=== PATIENT | male | born 1995 | race Two or more races ===

== ENCOUNTER 2021-01-03 16:43 | Emergency (ER) | payer OTHER ==
[2021-01-03] MEDS ORDERED: Diphtheria,Pertussis(Acell),Tetanus Vaccine 0.5 ML Syringe IM ONE (17:23)
--- NOTE | 2021-01-03 17:42 | EDM.PDOC ---
ED HPI GENERAL MEDICAL PROBLEM - General Chief Complaint: Laceration Stated Complaint: CUT FINGER Time Seen by Provider: 01/03/21 17:23 Source of Information: Reports: Patient History Limitations: Reports: No Limitations - History of Present Illness INITIAL COMMENTS - FREE TEXT/NARRATIVE: Karri is a 25-year-old male presenting to the ED for evaluation of laceration to the left dorsal thumb. Patient was using an angle edge grinder machine and slid off the metal that he was cutting causing a deep abrasion/laceration to the dorsal thumb. He has intact sensation and full range of motion of the thumb without evidence for any disruption of the tendon sheath or tendon. It does appear that the central part of the laceration does go through the dermis, however, the majority of the wound is epidermis. The patient's tetanus status is unknown, however, he likely has not had any booster for over 5 years so we will give him a Tdap today. Left Finger-Thumb Pain Score (Numeric/FACES): 2 - Related Data Allergies Allergy/AdvReac Type Severity Reaction Status Date / Time No Known Allergies Allergy Verified 01/03/21 17:21 Home Meds: Home Meds NK [No Known Home Meds] 01/03/21 [History] Past Medical History - Past Health History Medical/Surgical History: Denies Medical/Surgical History Social & Family History - Tobacco Use Tobacco Use Status *Q: Never Tobacco User Second Hand Smoke Exposure: No - Caffeine Use Caffeine Use: Reports: Energy Drinks, Soda - Recreational Drug Use Recreational Drug Use: No ED ROS GENERAL - Review of Systems Review Of Systems: See Below Constitutional: Reports: No Symptoms HEENT: Reports: No Symptoms Respiratory: Reports: No Symptoms Cardiovascular: Reports: No Symptoms Endocrine: Reports: No Symptoms GI/Abdominal: Reports: No Symptoms : Reports: No Symptoms Musculoskeletal: Reports: No Symptoms Skin: Reports: Wound (2.7 cm laceration on the dorsal left thumb) Neurological: Reports: No Symptoms Psychiatric: Reports: No Symptoms Hematologic/Lymphatic: Reports: No Symptoms Immunologic: Reports: No Symptoms ED EXAM, SKIN/RASH Exam: See Below Exam Limited By: No Limitations General Appearance: Alert, No Apparent Distress Extremities: Other (2.7 cm laceration dorsal left thumb with normal movement of the thumb with flexion and extension. No evidence for tendon involvement. The central area of the laceration measuring about 0.7 cm does appear to go through the epidermis and dermis into the soft tissue. The majority of the 2.7 cm laceration is just through the epidermis into the dermis.) Neurological: Alert, Oriented, No Motor/Sensory Deficits Psychiatric: Normal Affect, Normal Mood Skin: Warm, Dry, Wound/Incision (0.7 cm laceration on dorsal left thumb). No: Erythema Location, Skin: Upper Extremity, Left Characteristics: Linear Lymphatic: No Adenopathy ED SKIN PROCEDURES - Laceration/Wound Repair Left Upper Digit - 1st (Thumb) Appearance: Subcutaneous Distal NVT: Neuro & Vascular Intact, No Tendon Injury Anesthetic Type: Local Local Anesthesia - Lidocaine (Xylocaine): 1% Plain Local Anesthetic Volume: 3cc Skin Prep: Chlorhexidine (Hibiciens) Exploration/Debridement/Repair: Wound Explored, In a Bloodless Field Closed with: Sutures Lac/Wound length In cm: 2.3 Suture Size: 4-0 # of Sutures: 2 Suture Type: Nylon, Interrupted Sterile Dressing Applied: Nurse Tetanus Status Addressed: Yes Complications: No Course - Vital Signs Last Recorded V/S: Last Vital Signs Temp 36.7 C 01/03/21 17:26 Pulse 61 01/03/21 17:26 Resp 16 01/03/21 17:26 BP 110/45 L 01/03/21 17:26 Pulse Ox 99 01/03/21 17:26 - Orders/Labs/Meds Orders: Active Orders 24 hr Category Date Time Status Vaccines to be Administered [RC] PER UNIT ROUTINE Care 01/03/21 17:24 Ordered Meds: Medications Discontinued Medications Generic Name Dose Route Start Last Admin Trade Name Freq PRN Reason Stop Dose Admin Bacitracin 1 dose 01/03/21 17:47 Bacitracin Oint 1 Gm TOP 01/03/21 17:48 ONETIME ONE Diphtheria/Tetanus/Acell Pertussis 0.5 ml 01/03/21 17:23 01/03/21 17:33 Boostrix IM 01/03/21 17:24 0.5 ml .ONCE ONE Administration Lidocaine HCl 5 ml 01/03/21 17:27 01/03/21 17:34 Xylocaine-Mpf 1% INJECT 01/03/21 17:28 5 ml ONETIME ONE Administration Departure - Departure Time of Disposition: 17:51 Disposition: Home, Self-Care 01 Condition: Good Clinical Impression: Laceration of thumb Qualifiers: Encounter type: initial encounter Damage to nail status: without damage Foreign body presence: without foreign body Laterality: left Qualified Code(s): S61.012A - Laceration without foreign body of left thumb without damage to nail, initial encounter - Discharge Information *PRESCRIPTION DRUG MONITORING PROGRAM REVIEWED*: Not Applicable *COPY OF PRESCRIPTION DRUG MONITORING REPORT IN PATIENT JOON: Not Applicable Instructions: Laceration Care, Adult, [id number], Sutures, [place], or Adhesive Wound Closure, [id number] Referrals: PCP,None [Primary Care Provider] - Forms: ED Department Discharge Care Plan Goals: Your sutures will need to be taken out in 7 days. Please watch for signs of infection including redness, increased temperature, drainage from the wound, and decreased range of motion of the thumb. We are starting you on an antibiotic to protect against this called cephalexin that you will need to take 1 capsule 3 times a day for 5 days. Should any sign of infection be noted please return to the ED for reevaluation. Sepsis Event Note (ED) - Evaluation Sepsis Screening Result: No Definite Risk - Focused Exam Vital Signs: Vital Signs Temp Pulse Resp BP Pulse Ox 01/03/21 17:26 36.7 C 61 16 110/45 L 99 01/03/21 17:19 36.7 C 61 16 110/45 L 99 - Problem List & Annotations (1) Laceration of thumb SNOMED Code(s): 714276031 Code(s): S61.019A - LACERATION W/O FOREIGN BODY OF THMB W/O DAMAGE TO NAIL, INIT Status: Acute Priority: High Current Visit: Yes Qualifiers: Encounter type: initial encounter Damage to nail status: without damage Foreign body presence: without foreign body Laterality: left Qualified Code(s): S61.012A - Laceration without foreign body of left thumb without damage to nail, initial encounter - Problem List Review Problem List Initiated/Reviewed/Updated: Yes - My Orders Last 24 Hours: My Active Orders 01/03/21 17:24 Vaccines to be Administered [RC] PER UNIT ROUTINE - Assessment/Plan Last 24 Hours: My Active Orders 01/03/21 17:24 Vaccines to be Administered [RC] PER UNIT ROUTINE
[2021-01-03] MEDS ORDERED: Bacitracin Oint 1 GM U/D Packet TOP ONE (17:47)
== END 2021-01-03 18:05 | disposition home or self-care (01) ==
LOC: JP.ED 16:43
DX: S61.012A Laceration without foreign body of left thumb without damage to nail, initial encounter (principal); Z23 Encounter for immunization; W26.8XXA Contact with other sharp object(s), not elsewhere classified, initial encounter
CPT/HCPCS: 12002; 12011; 90471; 90715; 99282-25; 99283